=== PATIENT | female | born 1995 | race Two or more races ===

== ENCOUNTER 2022-09-17 17:28 | Emergency (ER) | payer MEDICAID, OTHER ==
[~2022-09-17] VITALS: Ht 160 cm; Wt 94.9 kg
[2022-09-17] MEDS ORDERED: HYDR2.5C39 TOP (21:01)
[2022-09-17 21:21] VITALS: BP 127/85
== END 2022-09-17 21:21 | disposition home or self-care (01) ==
LOC: ER 17:28
DX: K64.4 Residual hemorrhoidal skin tags (principal); K64.5 Perianal venous thrombosis